=== PATIENT | female | born 1990 | race Caucasian/White ===

== ENCOUNTER 2019-10-09 18:43 | Emergency (ER) | payer OTHER, MEDICAID ==
[~2019-10-09] VITALS: Ht 152.4 cm; Wt 65.3 kg
[2019-10-09 19:01] VITALS: Ht 152.4 cm; Wt 65.3 kg
[2019-10-09 19:47] VITALS: BP 103/57
== END 2019-10-09 19:47 | disposition home or self-care (01) ==
LOC: ED 18:43
DX: S13.4XXA Sprain of ligaments of cervical spine, initial encounter (principal); V49.49XA Driver injured in collision with other motor vehicles in traffic accident, initial encounter; Y93.I9 Activity, other involving external motion; Y92.488 Other paved roadways as the place of occurrence of the external cause; Y99.8 Other external cause status

== ENCOUNTER 2019-10-18 20:59 | Emergency (ER) | payer MEDICAID ==
[~2019-10-18] VITALS: Ht 152.4 cm; Wt 61.2 kg
[2019-10-18 21:00] VITALS: Ht 152.4 cm; Wt 61.2 kg
[2019-10-18 21:56] VITALS: BP 120/83
== END 2019-10-18 21:56 | disposition home or self-care (01) ==
LOC: ED 20:59
DX: Z11.3 Encounter for screening for infections with a predominantly sexual mode of transmission (principal)
CPT/HCPCS: 87491; 87591; J0696

== ENCOUNTER 2019-11-05 12:09 | Emergency (ER) | payer MEDICAID ==
[~2019-11-05] VITALS: Ht 152.4 cm; Wt 63.5 kg
[2019-11-05 12:21] VITALS: Ht 152.4 cm; Wt 63.5 kg
[2019-11-05 15:28] VITALS: BP 114/71
== END 2019-11-05 15:28 | disposition home or self-care (01) ==
LOC: ED 12:09
DX: B37.3 Candidiasis of vulva and vagina (principal); N76.0 Acute vaginitis

== ENCOUNTER 2020-01-28 13:41 | Emergency (ER) | payer MEDICAID, SELFPAY ==
[~2020-01-28] VITALS: Ht 152.4 cm; Wt 59.0 kg
[2020-01-28 13:43] VITALS: BP 112/71; Ht 152.4 cm; Wt 59.0 kg
== END 2020-01-28 14:19 | disposition left against medical advice (07) ==
LOC: ED 13:41
DX: Z53.21 Procedure and treatment not carried out due to patient leaving prior to being seen by health care provider (principal)